=== PATIENT | female | born 2000 | race Hispanic/Latino ===

== ENCOUNTER → 2022-03-18 16:12 | Outpatient (CLI) | payer OTHER, SELFPAY ==
[2022-03-18 17:39] LABS: Add Manual Diff / Slide Review NO; Basophils Absolute Auto 0 /uL (0-100); Basophils Percent Auto 0.2 % (0-2); Eosinophils Absolute Auto 100 /uL (0-450); Hematocrit 33.9 % (36-46); Hemoglobin 12.2 g/dL (12.0-16.0); Lymphocytes Absolute Auto 2300 /uL (1100-4500); Lymphocytes Percent Auto 26.4 % (25-40); Mean Corpuscular HGB Conc 36.1 % (30-36); Mean Corpuscular Hemoglobin 29.5 PG (26-34); Mean Corpuscular Volume 81.8 fL (80-100); Monocytes Absolute Auto 400 /uL (0-900); Monocytes Percent Auto 4.1 % (3-14); Neutrophils Absolute Auto 6000 /uL (1500-7000); Neutrophils Percent Auto 68.3 % (50-75); Platelet Count 273 X10^3/uL (150-400); Red Blood Cell Count 4.14 X10^6/uL (4.0-5.2); Red Cell Distribution Width 13.2 % (11.6-14.8); White Blood Cell Count 8.7 X10^3/uL (4.5-11.0)
[2022-03-19 16:20] LABS: Hepatitis B Surface Antigen NEGATIVE s/c (NEGATIVE)
[2022-03-19 16:43] LABS: HIV 1 & 2 Ab/Ag 4th Gen Combo NEGATIVE (NEGATIVE); Hep C Virus Ab w/Reflex Quant NEGATIVE s/c (NEGATIVE)
[2022-03-20 08:42] LABS: RPR Screen Non Reactive (Non Reactive)
[2022-03-20 16:35] LABS: Varicella IgG Antibody 157 index (Immune >165)
== END ==
PROVIDERS: Referring Provider Obstetrics & Gynecology; Visit Provider Obstetrics & Gynecology
DX: Z34.81 Encounter for supervision of other normal pregnancy, first trimester (principal)
CPT/HCPCS: 36415; 80055; 86787; 86803; 86850; 86900; 86901; 87389

== ENCOUNTER → 2022-04-15 13:54 | Outpatient (CLI) | payer OTHER, SELFPAY ==
[2022-04-15 20:24] LABS: Urine N gonorrhoeae NOT DETECTED
[2022-04-15 20:30] LABS: Urine Chlamydia NOT DETECTED
== END ==
PROVIDERS: Visit Provider Obstetrics & Gynecology
DX: Z34.82 Encounter for supervision of other normal pregnancy, second trimester (principal); Z3A.16 16 weeks gestation of pregnancy
CPT/HCPCS: 87086; 87491; 87591

== ENCOUNTER → 2022-04-15 14:13 | Outpatient (CLI) | payer OTHER, SELFPAY ==
[2022-04-17 21:36] LABS: AFP Value 38.6 ng/mL (.); Gest Age on Col Date 16.7 weeks (.); Insulin Dep Diabetes No (.); OSBR Risk 1IN 10000 (.); Results Report (.); Test Results *Screen Negative* (.)
== END ==
PROVIDERS: Referring Provider Obstetrics & Gynecology; Visit Provider Obstetrics & Gynecology
DX: Z34.82 Encounter for supervision of other normal pregnancy, second trimester (principal); Z3A.16 16 weeks gestation of pregnancy
CPT/HCPCS: 36415; 82105; 87086; 87491; 87591

== ENCOUNTER → 2022-05-12 15:19 | Outpatient (CLI) | payer OTHER, SELFPAY ==
--- NOTE | 2022-05-12 15:19 | DI.US.S_ITS ---
PROCEDURE: US OB >= 14 WEEKS FETUS INDICATIONS: 20 Week Anatomy Scan OUTSIDE/PRIOR DATING DATA: Last menstrual period (LMP): 12/19/2021 LMP-based estimated date of delivery (AMANDA): 09/25/2022 The calculations are made using the working AMANDA of 09/25/2022 TECHNIQUE: Real-time scanning was performed of the fetus, with image documentation and biometric measurements. Endovaginal scanning: Not performed. COMPARISON: None. FINDINGS: General: A single living intrauterine gestation is present. Presentation: Variable Placenta: Placental position is posterior, without previa. Amniotic fluid index: 8.6 cm, normal range is 5-24 cm. Single deepest vertical pocket is 3.2 cm. heart rate: 144 beats per minute. Maternal cervical canal: 4.5 cm long. Normal lower limit is 2.5 cm. biometrics: Biparietal diameter: 4.7 cm, 20 weeks 0 days Head circumference: 17.2 cm, 19 weeks 5 days Abdominal circumference: 14.9 cm, 20 weeks 1 day Femur length: 3.3 cm, 20 weeks 1 day Clinically estimated gestational age: 20 weeks 4 days Composite gestational age from present scan: 20 weeks 0 days Estimated weight and percentile: 322 g, 22nd percentile Anatomic survey: Neuro: Ventricles are non-dilated at less than 10 mm. Cisterna magna is normal at 3-11 mm. Cerebellum is normal in size and morphology. Nuchal skin fold: Normal at less than 6 mm between 14-21 weeks gestational age. Face: Nose and lips, facial profile are normal. Spine: No evidence for spina bifida. Heart: 4-chambered heart is present, with normal ventricular outflow tracts. Diaphragm: Diaphragm is intact. Stomach: Left-sided stomach is present. Kidneys: No hydronephrosis. Normal is less than 5 mm in 2nd trimester, less than 7 mm in 3rd trimester. Cord: 3-vessel cord has orthotopic insertion. Bladder: Normal in size. Extremities: All 4 extremities identified. IMPRESSION: 1. Single live intrauterine . size is consistent with clinical dates. 2. anatomic survey is within normal limits. We strive to produce accurate, complete, and clear reports of imaging services. To assist us in improving patient care, this report was composed using standard report templates and voice recognition software. Therefore, it may contain abnormal punctuation, insertions and/or omissions. Occasional wrong-word or sound-alike substitutions may occur. Though we review the report and make efforts to correct it, we do recommend that the report be read carefully in proper context to recognize any text inaccuracies. Approved by: Rafat Velazquez M.D. on 05/12/2022 at 20:56
== END ==
PROVIDERS: Referring Provider Obstetrics & Gynecology; Visit Provider Obstetrics & Gynecology
DX: Z34.82 Encounter for supervision of other normal pregnancy, second trimester (principal); Z3A.20 20 weeks gestation of pregnancy
CPT/HCPCS: 76811

== ENCOUNTER → 2022-06-16 15:16 | Outpatient (CLI) | payer OTHER, SELFPAY | PROVIDERS: Visit Provider Obstetrics & Gynecology | DX: Z34.82 Encounter for supervision of other normal pregnancy, second trimester (principal); Z3A.25 25 weeks gestation of pregnancy | CPT/HCPCS: 87086 ==

== ENCOUNTER → 2022-07-14 15:59 | Outpatient (CLI) | payer OTHER, SELFPAY ==
[2022-07-14 17:28] LABS: Hemoglobin 11.8 g/dL (12.0-16.0)
[2022-07-14 17:46] LABS: GTT (PREG) 1 Hour PP 50gm Dose 127 mg/dL (76-139)
== END ==
PROVIDERS: Referring Provider Obstetrics & Gynecology; Visit Provider Obstetrics & Gynecology
DX: Z34.82 Encounter for supervision of other normal pregnancy, second trimester (principal); Z3A.26 26 weeks gestation of pregnancy
CPT/HCPCS: 36415; 82950; 85014; 85018

== ENCOUNTER → 2022-09-08 13:55 | Outpatient (CLI) | payer OTHER, SELFPAY ==
[2022-09-09 15:27] LABS: Strep Grp B PCR POS for Grp B Strep
== END ==
PROVIDERS: PCP Physician Assistant; Visit Provider Obstetrics & Gynecology
DX: Z34.83 Encounter for supervision of other normal pregnancy, third trimester (principal); Z3A.37 37 weeks gestation of pregnancy
CPT/HCPCS: 87653

== ENCOUNTER 2022-09-17 12:20 | Inpatient (IN) | payer OTHER, SELFPAY ==
--- NOTE | 2022-09-17 07:53 | P.HPOB_ITS ---
OB HPI Date/Time Date of admission: 09/17/22 Date Patient Seen: 09/17/22 Time Patient Seen: 14:46 History of Present Condition Chief complaint: Repeat AMANDA Calculator Estimated Delivery Date Method Current WG Current Estimate 09/25/22 LMP (Certain) 38w 6d Other Estimates 09/26/22 Ultrasound #1 38w 5d Estimated Gestational Age (weeks): 39 : 2 Para: 1 care: good care, initiated at week # (12), number of visits (8) and pounds weight gain (20) Dating criteria OB: LMP confirmed by 1st trimester US Ultrasounds: normal 1st trimester US and normal mid trimester US Obstetrical complications: none Medical complications OB: none Indications Operative indications ( section): previous uterine surgery Preadmission Labs Last OB Lab Results: Blood Type O Positive 09/17/22 13:05 Antibody Screen Negative 09/17/22 13:05 Hematocrit 34.4 % (36-46) L 09/17/22 13:05 Hemoglobin 12.3 g/dL (12.0-16.0) 09/17/22 13:05 Hepatitis B Surface Antigen Negative s/c (NEGATIVE) 03/18/22 16 :20 Hepatitis C Antibody Negative s/c (NEGATIVE) 03/18/22 16:20 Rubella Antibody 297.0 IU/mL (>15) 03/18/22 16:20 Varicella-Zoster IgG Antibody 157 index (Immune >165) L 2 16:20 Glucose 1 Hour 127 mg/dL (76-139) 07/14/22 16:05 Group B Streptococcus (PCR) Pos for grp b strep H 09/08/22 13:5 5 -: Chlamydia screen: negative, Gonorrhea screen: negative and Urine: negative Genetic Screens: Quad screen: Normal External Labs -: Urine: negative Prior (ies) Past Pregnancies Del. Date GA/Weeks Labor Lgth Wt Sex Route Outcome Anesthesia Place Delv Breastfeed Preg Comp Name 04/11/19 42 24 Female live - full term [facility] 3 months post-dates induction Kennedi Sofia Delivery Date: 04/11/19 Last Updated by: Olga Lujan RN failed induction for post dates, SGA Evaluation Evaluation Baseline heart rate: 135 Variability: Moderate (11-25) monitor accelerations: Present Monitor Decelerations: Absent Status: Category l COUNT INCLUDES THE [facility] Medical History (Updated 09/08/22 @ 14:24 by Joe Ambriz MD) Healthy adult Surgical History (Updated 04/14/22 @ 21:43 by Sendy Cruz) History of delivery (~04/11/19) No pertinent past surgical history Family History (Updated 04/14/22 @ 21:45 by Sendy Cruz) Grandmother Diabetes mellitus Mother Diabetes mellitus Grandmother Rheumatoid arthritis Diabetes mellitus Brother Epileptic Grandfather Hypertension Gout Social History marital status: number of children: 1 household members: spouse and children lives independently: Yes caregiver/support person: Yes housing: condominium (base [facility]) pets and animals: Yes (1 dog; aware of toxo precautions) education level: college (Associate's degree (criminal justice)) occupational status: employed current occupational exposures/hazards: No special roslyn needs: No travel history: recent (Domestic only) seatbelt use: always water heater temp set < 120 deg: No working smoke detector in home: Yes fire extinguisher in home: Yes carbon monox detector in home: Yes firearms in home: Yes firearms unloaded and locked: Yes do you feel safe at home: Yes Smoking Status: Never smoker second hand exposure: No alcohol intake: former (rarely when not ) substance use type: does not use during the past year weight has: remained stable well-balanced diet: about half the time daily servings fruits/ve-1 caffeine: Yes (occasional, aware of 200mg limit) Type(s) of exercise: walking frequency: daily Meds Home Medications and Allergies Home Medications Medication Instructions Recorded Confirmed Type prenat.vits,francine,xvy-kwyo-gbmrx 1 tab PO DAILY 03/12/22 09/08/22 History Allergies Allergy/AdvReac Type Severity Reaction Status Date / Time oxytocin [From Pitocin] Allergy Intermediate Severe Verified 09/08/22 13:55 swelling and rash OB Exam Narrative Exam Narrative: Generally: Patient is sitting up in bed, no acute distress Lungs: Clear to auscultation bilaterally Cardiovascular: Regular rate and rhythm Fundal height: 38 cm Estimated weight: 7 lb Extremities: No edema Objective Labs 09/17/22 13:05 Assessment and Plan Assessment and Plan Assessment and Plan narrative: Assessment: 22-year-old 2 para 1 at an estimated gestational age of 39 weeks with a previous section Plan: Repeat low-transverse section The risks, benefits, and alternatives to the procedure were explained to the patient. The risks including bleeding, infection, injury to the bowel, bladder, or ureters. She understands these risks and agrees to proceed. A full par Q was held and consent form was signed. Time Spent with Patient Total time spent with greater than 50% in coordination of care (as documented) at patient's floor/unit and/or counseling patient:: 15-24 minutes
[2022-09-17 13:16] LABS: Add Manual Diff / Slide Review NO; Basophils Absolute Auto 0 /uL (0-100); Basophils Percent Auto 0.4 % (0-2); Eosinophils Absolute Auto 100 /uL (0-450); Eosinophils Percent Auto 1.2 % (2-4); Hematocrit 34.4 % (36-46); Hemoglobin 12.3 g/dL (12.0-16.0); Lymphocytes Absolute Auto 1900 /uL (1100-4500); Mean Corpuscular HGB Conc 35.6 % (30-36); Mean Corpuscular Hemoglobin 30.9 PG (26-34); Mean Corpuscular Volume 86.9 fL (80-100); Monocytes Absolute Auto 500 /uL (0-900); Monocytes Percent Auto 6.2 % (3-14); Neutrophils Absolute Auto 5400 /uL (1500-7000); Neutrophils Percent Auto 68.2 % (50-75); Platelet Count 198 X10^3/uL (150-400); Red Blood Cell Count 3.96 X10^6/uL (4.0-5.2); Red Cell Distribution Width 13.7 % (11.6-14.8)
[2022-09-17] MEDS: CITRIC ACID/SODIUM CITRATE 15 ML SOLUTION 30 ML PO (13:40)
--- NOTE | 2022-09-17 14:52 | PM.PREOP ---
Pre-operative Note COVID-19 Criteria for continued procedure: Non-surgical alternatives not available or appropriate per current SOC Interval Note History & Physical reviewed/Exam performed by Physician: Yes Changes to H&P: No H&P completed within 30 days and has changed as indicated here:: 09/17/22
[2022-09-17] MEDS: ACETAMINOPHEN IV 1,000 MG/100 ML VIAL 400 MG IV (15:00)
[2022-09-17] MEDS: CEFAZOLIN 2 GM/100 ML PREMIX 100 ML IV (15:08)
--- NOTE | 2022-09-17 15:33 | SUR.OPER ---
Supine on padded OR bed, head on pillow, arms secured on padded arm boards at <90 degrees abduction, legs uncrossed, safety belt at thigh, tape over blanket over lower legs.
[2022-09-17] MEDS: LACTATED RINGERS 1,000 ML 999 ML IV (16:00)
[2022-09-17 16:24] VITALS: BP 113/68; PULSE 69; RESP 14; TEMP 36.2; O2SAT 100
[2022-09-17 16:25] VITALS: BP 113/68; PULSE 70; RESP 14; TEMP 36.3; O2SAT 99
[2022-09-17 16:30] VITALS: BP 122/76; PULSE 70; RESP 14; O2SAT 99
--- NOTE | 2022-09-17 16:31 | P.OP_ITS ---
Operative Date/Time/Diagnoses Date of procedure: 09/17/22 Time of procedure: 16:31 Pre-op diagnosis: Estimated gestational age of 39 weeks Previous section Post-op diagnosis: same Procedure & Clinicians Procedure: Repeat low-transverse section Same procedure as scheduled: Yes Indications: Previous section Estimated gestational age of 39 weeks Surgeon: Riana Moon Click Yes if Unassisted: No Assistant Manager Bilingual: Corina Gonsalez Reason for Assistant Manager Bilingual: The metallurgical laboratory assistant was necessary to retract upon entry into the abdomen and uterus. She assisted with delivery of the with fundal pressure. She assisted with closure of the uterus and abdomen with retraction and clipping of suture. Anesthesia Type: Spinal (With Duramorph) Operative Notes Findings: Normal tubes and ovaries Closure Type: primary Specimen(s): cord blood Intraoperative meds administered: Duramorph, Hemabate, Ketorolac and Methergine Applied: Catheter (To continuous drainage) Estimated Blood Loss (mL): 600 Blood products transfused: none Procedure in detail: The patient was taken to the operating room where she was placed in the seated position. Spinal anesthesia with Duramorph was administered. The patient was then placed in the dorsal supine position with a leftward tilt. She was prepped and draped in the usual sterile fashion. A timeout was performed. After spinal analgesia was found to be adequate, a Pfannenstiel skin incision was made through the previous incision and carried through to the underlying layer fascia. The fascia was nicked in the midline, and the incision extended bilaterally with the Fitzegrald scissors. The superior aspect of the fascial incision was grasped with a Son clamps, elevated, and the underlying rectus muscles dissected off sharply and bluntly. Attention was then turned to the inferior aspect of this incision which in a similar fashion was grasped with a Maidens clamps, elevated, and the underlying rectus muscles dissected off sharply and bluntly. The rectus muscles were in the midline. The peritoneum was identified, grasped between 2 hemostats, and entered sharply with the Metzenbaum scissors. This incision was extended superiorly and inferiorly with good visualization of the bladder. The bladder blade was inserted. The vesicouterine peritoneum was identified, grasped with the pickup, and entered sharply with the Metzenbaum scissors. This incision was extended bilaterally, and the bladder flap was created digitally. The bladder blade was reinserted. The lower uterine segment was incised in a transverse fashion with the scalpel. Upon entering the amniotic sac there was moderate amount of clear amniotic fluid. The 's head was delivered with vacuum assistance. The nose and mouth were suctioned with bulb suction. The remainder of the body delivered without difficulty. The cord was double clamped and cut after 1 minute. The was handed off to waiting RN and RT. The placenta was delivered by expression. The uterus was cleared of all clots and debris. The uterine incision was repaired with #1 chromic in a running interlocking fashion, and a second layer the same suture was used for an imbricating layer. Due to some increased bleeding, Hemabate and methergine were given. Hemostasis was achieved. The tubes and ovaries were examined and were found to be normal. The gutters were cleared of all clots and debris. The bladder flap was reapproximated using 2-0 Vicryl in a running fashion. The parietal peritoneum was closed using 2-0 Vicryl in a running fashion. The fascia was reapproximated using 0 Vicryl in a running fashion. The subcutaneous layer was copiously irrigated with warm normal saline. 5 simple interrupted sutures of 3-0 Vicryl were placed to reapproximate the subcutaneous layer. The skin was closed with 4-0 Monocryl in a subcuticular fashion. Steri-Strips were placed. An Aquacel dressing was placed. The uterus was expressed of a small amount of old blood. Sponge, lap, and instrument counts were correct x-2. The patient tolerated the procedure well, and was taken to PACU in stable condition. Complications: none [place] Baby 1: Gender: Male Presentation: vertex Position: Left Occiput Anterior Cord Vessel Description: 3 Vessels, Nuchal Cord (X1), Reduced and Clamped/Cut (After 1 minute) score (1 min): 9 score (5 min): 9 weight: 5 lb 8.1 oz Post-operative Condition: stable Disposition: PACU Aftercare: routine postop
[2022-09-17 16:35] VITALS: BP 108/66; PULSE 71; RESP 16; O2SAT 98
[2022-09-17 16:40] VITALS: BP 100/72; PULSE 71; RESP 14; O2SAT 99
[2022-09-17] MEDS: LACTATED RINGERS 1,000 ML 125 ML IV (18:30)
[2022-09-17] MEDS: KETOROLAC 30 MG/ML VIAL IV (21:06)
[2022-09-17] MEDS: METHYLERGONOVINE 0.2 MG TABLET PO (21:07)
[2022-09-18 00:23] VITALS: BP 94/61; PULSE 66; RESP 16; TEMP 36.2
[2022-09-18] MEDS: METHYLERGONOVINE 0.2 MG TABLET PO ×3 (00:48→09:16)
[2022-09-18] MEDS: KETOROLAC 30 MG/ML VIAL IV ×2 (03:37→11:20)
[2022-09-18 07:14] LABS: Add Manual Diff / Slide Review NO; Basophils Absolute Auto 0 /uL (0-100); Basophils Percent Auto 0.2 % (0-2); Eosinophils Absolute Auto 0 /uL (0-450); Eosinophils Percent Auto 0.4 % (2-4); Hemoglobin 10.5 g/dL (12.0-16.0); Lymphocytes Absolute Auto 1400 /uL (1100-4500); Lymphocytes Percent Auto 14.7 % (25-40); Mean Corpuscular HGB Conc 36.2 % (30-36); Mean Corpuscular Hemoglobin 31.4 PG (26-34); Mean Corpuscular Volume 86.7 fL (80-100); Monocytes Absolute Auto 600 /uL (0-900); Monocytes Percent Auto 6.2 % (3-14); Neutrophils Absolute Auto 7200 /uL (1500-7000); Neutrophils Percent Auto 78.5 % (50-75); Platelet Count 157 X10^3/uL (150-400); Red Blood Cell Count 3.34 X10^6/uL (4.0-5.2); Red Cell Distribution Width 13.5 % (11.6-14.8); White Blood Cell Count 9.2 X10^3/uL (4.5-11.0)
[2022-09-18] MEDS: PRENATAL VIT,CALC/IRON/FOLIC 1 TABLET 1 TAB PO (09:16)
[2022-09-18] MEDS: DOCUSATE 100 MG CAPSULE PO (09:16)
[2022-09-18 09:24] VITALS: TEMP 37
[2022-09-18] MEDS: OXYCODONE IR 5 MG TABLET PO ×3 (09:24→21:55)
--- NOTE | 2022-09-18 17:43 | PM.OBPN.1 ---
Subjective - OB Subjective Patient comments: no complaints and incisional pain [place] baby status: doing well and nursing well feeding status: exclusively breast feeding Date Patient Seen: 09/18/22 Time Patient Seen: 13:45 Interval history: Postop day # 1 status post repeat low-transverse section. Exam Vital Signs (past 8 hours): Oxygen Delivery Method Room Air Narrative Exam Narrative: Generally: Patient is sitting up in bed, no acute distress Lungs: Clear to auscultation bilaterally Cardiovascular: Regular rate and rhythm Fundus: Firm at U -1 Incision: Clean dry and intact with Aquacel dressing Extremities: No edema, negative Homans Objective Labs 09/18/22 06:40 Labs: Laboratory Results - last 24 hr 09/18/22 06:40 WBC 9.2 RBC 3.34 L Hgb 10.5 L Hct 29.0 L MCV 86.7 MCH 31.4 MCHC 36.2 H RDW 13.5 Plt Count 157 Neut % (Auto) 78.5 H Lymph % (Auto) 14.7 L Humphreys % (Auto) 6.2 Eos % (Auto) 0.4 L Baso % (Auto) 0.2 Neut # (Auto) 7200 H Lymph # (Auto) 1400 Humphreys # (Auto) 600 Eos # (Auto) 0 Baso # (Auto) 0 Assessment & Plan Plan day: 1 plan OB: routine postop care Time Spent With Patient Time: Total time spent is greater than 50% in coordination of care (as documented) at patient's floor/unit and/or counseling patient: Time with patient: less than 15 minutes
[2022-09-18] MEDS: LANOLIN OINT 7 GM 1 APPLIC TOP (17:44)
[2022-09-18] MEDS: IBUPROFEN 600 MG TABLET PO (20:01)
[2022-09-18] MEDS: ACETAMINOPHEN 325 MG TABLET 650 MG PO (21:54)
[2022-09-19] MEDS: IBUPROFEN 600 MG TABLET PO ×3 (02:08→14:21)
[2022-09-19] MEDS: OXYCODONE IR 5 MG TABLET PO ×3 (02:09→12:25)
[2022-09-19] MEDS: ACETAMINOPHEN 325 MG TABLET 650 MG PO ×2 (04:50→10:46)
[2022-09-19] MEDS: DOCUSATE 100 MG CAPSULE PO (08:36)
[2022-09-19] MEDS: PRENATAL VIT,CALC/IRON/FOLIC 1 TABLET 1 TAB PO (08:36)
--- NOTE | 2022-09-21 22:26 | PM.OBDS.1 ---
Discharge Providers Provider Date of admission: 09/17/22 12:20 Discharge Date: 09/19/22 Primary care physician: Jacquie Hawkins PA-C Consults: 09/17/22 17:23 Consult to Esl Instructional Assistant Routine Comment: Discharge provider: Riana Moon MD Summary Hospital Course Date Patient Seen: 09/19/22 Time Patient Seen: 11:45 Diagnoses: 39 weeks gestation Previous section Repeat low-transverse section Hospital Course: Patient is a 22-year-old 2 para 2 who presented on September 17, 2022 for a scheduled repeat low-transverse section. She underwent this procedure without complication. Her postoperative course was unremarkable. On postop day # 1 her Burgos catheter was removed and she was able to void without the catheter. No nausea or vomiting. She tolerated a diet. Pain was well controlled. She ambulated independently. going well. Peripartum Data Delivery Method: Section Procedures: Spinal anesthesia with Duramorph Repeat low-transverse section complications: none [place] 1: Gender: Male Disposition of : home Status at Discharge Cognitive/behavioral status at discharge: oriented Functional status at discharge: independent ambulation Overall status at discharge: patient is progressing back to baseline Time Spent with Patient Time attestation: Total time spent providing and/or coordinating discharge services: Time spent: Less than 30 minutes Objective Labs 09/18/22 06:40 Exam Vital Signs (past 8 hours): Oxygen Delivery Method Room Air Narrative Exam Narrative: Generally: Patient is sitting up in bed, no acute distress Lungs: Clear to auscultation bilaterally Cardiovascular: Regular rate and rhythm Fundus: Firm at U -1 Incision: Clean dry and intact with Aquacel dressing Extremities: No edema, negative Homans Discharge Plan Discharge Plan Patient Disposition: Home Provider Discharge Comment: Call with fever, chills, redness or drainage around the incision or bleeding vaginally more than a pad in an hour Ibuprofen 600mg every 6 hours as needed for pain or cramping Tylenol 650mg every 6 hours as needed for pain Stool softners as needed Push oral fluids Discharge orders & Medications Prescriptions: New ibuprofen 600 mg tablet 600 mg PO QID PRN (Reason: pain or cramping) Qty: 30 2RF docusate sodium [Colace] 100 mg capsule 100 mg PO DAILY Qty: 20 0RF oxycodone 5 mg tablet 5 mg PO Q4H PRN (Reason: pain) Qty: 20 0RF Continued prenat.vits,francine,wpe-yvhu-lfazz Tablet 1 tab PO DAILY Follow up/Referrals: Riana Moon MD [Physician] - (My office will call the patient on Wednesday to schedule Aquacel removal next week) Diet/Activity/Treatments Diet: Regular Activity: No heavy lifting Nothing in the vagina for 6 weeks Skin/Wound/Dressing Care Report to your healthcare provider any signs of infection, such as:: chills, fever, increased pain, unusual drainage and unusual redness Dressing: Do not remove Visit Report/Discharge Packet Instructions: DI for , DI for Prescription Opioid Use Stand Alone Forms: Patient Portal/API, Stroke Signs & Symptoms Discharge Data Primary Care Provider: Jacquie Hawkins Discharges patient from system. Discharge Date/Time: 09/19/22 14:22
== END 2022-09-19 14:22 | disposition home or self-care (01) | DRG 788 ==
PROVIDERS: Obstetrics & Gynecology; Admitting Provider Obstetrics & Gynecology; PCP Physician Assistant; Referring Provider Obstetrics & Gynecology; Visit Provider Obstetrics & Gynecology
PROC: 10D00Z1 Extraction of Products of Conception, Low, Open Approach (ICD-10-PCS; CPT 59514; principal; 2022-09-17 15:30)
DX: O34.211 Maternal care for low transverse scar from previous cesarean delivery (principal); O99.824 Streptococcus B carrier state complicating childbirth; Z3A.39 39 weeks gestation of pregnancy; Z37.0 Single live birth; Z67.40 Type O blood, Rh positive
CPT/HCPCS: 36415; 59050; 59510; 59514; 85025; 86850; 86900; 86901; J0131; J0690; J1885; J2274; J2405